=== PATIENT | female | born 1990 | race African-American/Black ===

== ENCOUNTER 2016-10-04 22:57 | Emergency (ER) | payer OTHER ==
[~2016-10-04] VITALS: Ht 162.6 cm; Wt 95.3 kg
[~2016-10-04 22:57] MED LIST: AZIT250T6 PO; CEPH-264 PO; HYDR-2165 PO; IBUP-1007 PO; PRED50TA PO; PROVENTIL HFA6.7 GM IH; SULF1TAB24 PO
[2016-10-04 23:31] LABS: BASO # 0.1 x10^3/uL (0.0-0.2); BASO % 1 % (0-3); EOS % 0 % (0-3); HEMOGLOBIN 12.2 g/dL (12.0-15.5); LYMPH # 3.8 x10^3/uL (1.0-4.8); LYMPH % 29 % (24-48); MEAN CORPUSCULAR HEMOGLOBIN 28 pg (25-35); MEAN CORPUSCULAR HGB CONC 32 g/dL (31-37); MEAN CORPUSCULAR VOLUME 87 fL (79-100); MONO % 6 % (0-9); NEUT % 64 % (31-73); PLATELET COUNT 382 x10^3/uL (140-400); RED BLOOD COUNT 4.38 x10^6/uL (3.50-5.40); RED CELL DISTRIBUTION WIDTH 13.3 % (11.5-14.5); WHITE BLOOD COUNT 13.2 x10^3/uL (4.0-11.0)
[2016-10-04 23:47] LABS: CALCIUM 9.6 mg/dL (8.5-10.1); GFR 82.4; POTASSIUM 3.7 mmol/L (3.5-5.1)
[2016-10-04 23:52] LABS: DIRECT BILIRUBIN 0.1 mg/dL (0.0-0.2); TOTAL BILIRUBIN 0.3 mg/dL (0.2-1.0); TOTAL PROTEIN 7.9 g/dL (6.4-8.2)
[2016-10-05] MEDS ORDERED: CONTRAST GIVEN MC PRN (00:45)
[2016-10-05] MEDS ORDERED: IOHEXOL 300 MG/ML 75 ML VIAL IV ONE (01:00)
[2016-10-05] MEDS ORDERED: KETOROLAC 15 MG/ML VIAL. IV ONE (01:00)
--- NOTE | 2016-10-05 01:13 | RAD ---
INDICATION: Chest pain. COMPARISON: None TECHNIQUE: Axial CT images obtained through the chest. Intravenous contrast was utilized. 3D images processed per protocol. One or more of the following individualized dose reduction techniques were utilized for this examination: 1. Automated exposure control; 2. Adjustment of the mA and/or kV according to patient size; 3. Use of iterative reconstruction technique. FINDINGS: No focal airspace consolidation. No pneumothorax. No pulmonary edema. Thoracic aorta not grossly aneurysmal. Ascending thoracic aorta evaluation is very limited secondary to motion. No gross osseous destructive lesion. No central pulmonary embolus. Limited peripherally secondary to motion. Suspect a right nonobstructive renal stone, 5 millimeter IMPRESSION: No focal airspace consolidation, pneumothorax or pulmonary edema. No central pulmonary embolus. Limited peripherally secondary to motion Mild fullness in distal esophagus. This is a questionable finding but cannot exclude causes such as reflux or esophagitis. Electronically signed by: [place] (Oct 05, 2016 01:11:50)
--- NOTE | 2016-10-05 01:35 | PHYS DOC ---
Past Medical History Past Medical History: Asthma Past Surgical History: Alcohol Use: None Drug Use: None Adult General Chief Complaint Chief Complaint: MULTIPLE COMPLAINTS HPI HPI Patient is a 26 year old female who presents here today complaining of chest pain since 9:30 PM. Patient has a history of asthma. Patient has any history of coronary disease, hypertension diabetes CHF liver or kidney problems. Patient has not had any abdominal surgeries. Patient is not smoke drink or do drugs. Patient denies any allergies except for penicillin. Patient denies fevers shakes chills. Patient denies vomiting or diarrhea. Patient denies diaphoresis. Patient denies cough or abdominal pain. Patient's last menstrual period was September 18. Patient reports she did have some mild shortness of breath earlier today. She denies any calf tenderness. Patient has any family history of PE or DVT. Patient reports she is on oral contraceptive pills. Patient's physical exam was unremarkable in the ER. Patient's heart lung abdominal exams were all normal. Patient tenderness or Homans sign. Patient appears comfortable resting in bed comfortably. Patient's ER course was significant for normal labs. Except for a d-dimer that was mildly elevated. Patient had a CTA of her chest which revealed no dissection or PE or abnormality. She was given Toradol with some relief in her discomfort. Patient be sent home with instructions to follow-up with her primary care physician for reevaluation and to return to the ER she has any further problems. A/P #1 nonspecific chest pain etiology unclear question gastritis versus pleurisy. Patient is stable for outpatient evaluation of this pain with her primary care physician. Review of Systems Review of Systems Constitutional: Denies fever or chills [] Eyes: Denies change in visual acuity, redness, or eye pain [] All other review systems are negative except as documented in history of present illness portion. Current Medications Current Medications Current Medications Medications (Trade) Dose Ordered Sig/Samara Start Time Stop Time Status Last Admin Dose Admin Info (Do NOT chart on this entry -- for MONITORING) 1 each PRN DAILY PRN 10/05/16 00:45 10/07/16 00:44 Iohexol (Omnipaque 300 Mg/ml) 75 ml 1X ONCE 10/05/16 01:00 10/05/16 01:01 DC 10/05/16 00:46 75 ML Ketorolac Tromethamine (Toradol) 15 mg 1X ONCE 10/05/16 01:00 10/05/16 01:01 DC 10/05/16 00:53 15 MG Allergies Allergies Allergies Coded Allergies Type Severity Reaction Last Updated Verified Penicillins Allergy Intermediate 09/09/15 Yes Physical Exam Physical Exam Constitutional: Well developed, well nourished, no acute distress, non-toxic appearance. [] HENT: Normocephalic, atraumatic, bilateral external ears normal, oropharynx moist, no oral exudates, nose normal. [] Eyes: PERRLA, EOMI, conjunctiva normal, no discharge. [] Neck: Normal range of motion, no tenderness, supple, no stridor. [] Cardiovascular:Heart rate regular rhythm, no murmur [] Lungs & Thorax: Bilateral breath sounds clear to auscultation [] Abdomen: Bowel sounds normal, soft, no tenderness, no masses, no pulsatile masses. [] Skin: Warm, dry, no erythema, no rash. [] Back: No tenderness, no CVA tenderness. [] Extremities: No tenderness, no cyanosis, no clubbing, ROM intact, no edema. [] Neurologic: Alert and oriented X 3, normal motor function, normal sensory function, no focal deficits noted. [] Psychologic: Affect normal, judgement normal, mood normal. [] Current Patient Data Vital Signs Vital Signs Date Time Temp Pulse Resp B/P Pulse Ox O2 Delivery O2 Flow Rate FiO2 10/04/16 23:03 98.0 87 20 134/90 100 Room Air 98.0 Lab Values Laboratory Tests Test 10/04/16 22:46 10/04/16 23:20 POC Urine HCG, Qualitative Hcg negative (Negative) White Blood Count 13.2x10^3/uL (4.0-11.0) H Red Blood Count 4.38x10^6/uL (3.50-5.40) Hemoglobin 12.2g/dL (12.0-15.5) Hematocrit 38.0% (36.0-47.0) Mean Corpuscular Volume 87fL (79-100) Mean Corpuscular Hemoglobin 28pg (25-35) Mean Corpuscular Hemoglobin Concent 32g/dL (31-37) Red Cell Distribution Width 13.3% (11.5-14.5) Platelet Count 382x10^3/uL (140-400) Neutrophils (%) (Auto) 64% (31-73) Lymphocytes (%) (Auto) 29% (24-48) Monocytes (%) (Auto) 6% (0-9) Eosinophils (%) (Auto) 0% (0-3) Basophils (%) (Auto) 1% (0-3) Neutrophils # (Auto) 8.4x10^3uL (1.8-7.7) H Lymphocytes # (Auto) 3.8x10^3/uL (1.0-4.8) Monocytes # (Auto) 0.8x10^3/uL (0.0-1.1) Eosinophils # (Auto) 0.0x10^3/uL (0.0-0.7) Basophils # (Auto) 0.1x10^3/uL (0.0-0.2) D-Dimer (Edith) 0.67ug/mlFEU (0.00-0.50) H Sodium Level 140mmol/L (136-145) Potassium Level 3.7mmol/L (3.5-5.1) Chloride Level 104mmol/L (98-107) Carbon Dioxide Level 22mmol/L (21-32) Anion Gap 14 (6-14) Blood Urea Nitrogen 14mg/dL (7-20) Creatinine 1.0mg/dL (0.6-1.0) Estimated GFR (Cockcroft-Gault) 82.4 Glucose Level 114mg/dL (70-99) H Calcium Level 9.6mg/dL (8.5-10.1) Total Bilirubin 0.3mg/dL (0.2-1.0) Direct Bilirubin 0.1mg/dL (0.0-0.2) Aspartate Amino Transferase (AST) 24U/L (15-37) Alanine Aminotransferase (ALT) 34U/L (14-59) Alkaline Phosphatase 76U/L (46-116) Troponin I Quantitative < 0.017ng/mL (0.000-0.055) AZ-Adq-U-Type Natriuretic Peptide 27pg/mL (0-124) Total Protein 7.9g/dL (6.4-8.2) Albumin 4.0g/dL (3.4-5.0) Laboratory Tests 10/04/16 23:20 Laboratory Tests 10/04/16 23:20 EKG EKG [] Radiology/Procedures Radiology/Procedures [] Course & Med Decision Making Course & Med Decision Making Pertinent Labs and Imaging studies reviewed. (See chart for details) [] Laboratory Tests Test 10/04/16 22:46 10/04/16 23:20 Bedside Urine HCG, Qualitative Hcg negative White Blood Count 13.2x10^3/uL Red Blood Count 4.38x10^6/uL Hemoglobin 12.2g/dL Hematocrit 38.0% Mean Corpuscular Volume 87fL Mean Corpuscular Hemoglobin 28pg Mean Corpuscular Hemoglobin Concent 32g/dL Red Cell Distribution Width 13.3% Platelet Count 382x10^3/uL Neutrophils (%) (Auto) 64% Lymphocytes (%) (Auto) 29% Monocytes (%) (Auto) 6% Eosinophils (%) (Auto) 0% Basophils (%) (Auto) 1% Neutrophils # (Auto) 8.4x10^3uL Lymphocytes # (Auto) 3.8x10^3/uL Monocytes # (Auto) 0.8x10^3/uL Eosinophils # (Auto) 0.0x10^3/uL Basophils # (Auto) 0.1x10^3/uL D-Dimer (Edith) 0.67ug/mlFEU Sodium Level 140mmol/L Potassium Level 3.7mmol/L Chloride Level 104mmol/L Carbon Dioxide Level 22mmol/L Anion Gap 14 Blood Urea Nitrogen 14mg/dL Creatinine 1.0mg/dL Estimated GFR (Cockcroft-Gault) 82.4 Glucose Level 114mg/dL Calcium Level 9.6mg/dL Total Bilirubin 0.3mg/dL Direct Bilirubin 0.1mg/dL Aspartate Amino Transf (AST/SGOT) 24U/L Alanine Aminotransferase (ALT/SGPT) 34U/L Alkaline Phosphatase 76U/L Troponin I Quantitative < 0.017ng/mL JP-Kpv-M-Type Natriuretic Peptide 27pg/mL Total Protein 7.9g/dL Albumin 4.0g/dL Current Medications Medications (Trade) Dose Ordered Sig/Samara Route PRN Reason Start Time Stop Time Status Last Admin Dose Admin Ketorolac Tromethamine (Toradol) 15 mg 1X ONCE IV 10/05/16 01:00 10/05/16 01:01 DC 10/05/16 00:53 15 MG Iohexol (Omnipaque 300 Mg/ml) 75 ml 1X ONCE IV 10/05/16 01:00 10/05/16 01:01 DC 10/05/16 00:46 75 ML Info (Do NOT chart on this entry -- for MONITORING) 1 each PRN DAILY PRN MC SEE COMMENTS 10/05/16 00:45 10/07/16 00:44 Lois Disclaimer Dragon Disclaimer This electronic medical record was generated, in whole or in part, using a voice recognition dictation system. Departure Departure Impression: Primary Impression: Nonspecific chest pain Disposition: HOME, SELF-CARE Condition: IMPROVED Referrals: CEE BOYER MD (PCP) Patient Instructions: Chest Pain (Nonspecific) BJORN KEEANN MD Oct 05, 2016 01:35
[2016-10-05 01:50] VITALS: BP 113/70
--- NOTE | 2016-10-05 06:53 | EKG ---
[facility] [address] [place] [address] Test Date: 2016-10-04 Test Time: 23:58:11 Pat Name: AVANI BLACK Department: Room: Gender: F Outside Laborer: : 1990 Requested By: BJORN KEENAN Order Number: [id number] Reading MD: Measurements Intervals [place] Rate: 75 P: 64 CT: 136 QRS: 73 QRSD: 78 T: 28 QT: 360 QTc: 404 Interpretive Statements SINUS RHYTHM LEFT ATRIAL ABNORMALITY NON SPECIFIC ST-T ABNORMALITY (ELEVATION) RI6.01 Unconfirmed report No previous ECG available for comparison
--- NOTE | 2016-10-05 07:37 | RAD ---
Portable chest, 10/04/2016: History: Chest pain The heart size and pulmonary vascularity are normal. No pulmonary infiltrates are seen. There is no evidence of pleural fluid. IMPRESSION: No acute cardiopulmonary abnormality is detected.
== END 2016-10-05 02:03 | disposition home or self-care (01) ==
LOC: ER 22:57
DX: R07.9 Chest pain, unspecified (principal); R06.02 Shortness of breath; J45.909 Unspecified asthma, uncomplicated; Z88.0 Allergy status to penicillin
CPT/HCPCS: 36415; 71010; 71275; 80048; 80076; 81025; 83880; 84484; 85027; 85379; 93005; 96374; 99285; J1885; Q9967

== ENCOUNTER 2016-12-01 22:02 | Emergency (ER) | payer OTHER ==
[~2016-12-01] VITALS: Ht 162.6 cm; Wt 96.6 kg
[2016-12-01 22:55] LABS: BILIRUBIN,URINE NEGATIVE (NEG); GLUCOSE,URINE NEGATIVE (NEG); NITRITE,URINE NEGATIVE (NEG); PROTEIN,URINE NEGATIVE (NEG-TRACE)
--- NOTE | 2016-12-01 23:00 | PHYS DOC ---
Past Medical History Past Medical History: Asthma, UTI, Other Additional Past Medical Histor: seasonal allergies Past Surgical History: Alcohol Use: None Drug Use: None Adult General Chief Complaint Chief Complaint: ABDOMINAL PAIN IN HPI HPI Patient is a 26 year old F who presents with abdominal pain and vaginal bleeding. Patient states last week she took a printed test which was positive and base of her last menstrual. She is approximately 8 weeks . Patient is . She states she was at work tonight and developed some abdominal cramping and went to the bathroom and had blood when she wiped. Patient called her mom who told her to the emergency room immediately. Patient denies any chest pain or short of breath. Patient denies any nausea/vomiting/diarrhea. Patient denies any fevers. Patient has no other complaints. Current exam findings: Abdomen was soft nontender bowel sounds heard in all 4 quadrants. Vaginal exam shows no bleeding in the vaginal vault no adnexal tenderness and the external exam was unremarkable and no discharge ED course: Patient was seen and examined, CBC, CMP, UA, urine Preg, beta Quant, Rh, ultrasound less than 14 weeks ordered 0121: Updated patient on results from ultrasound and lab results that are showing most likely a miscarriage. Recommended patient follow-up with her OB/ NEUROPSYCHIATRIC AIDE on Saturday for further evaluation and management. Recommended pelvic rest until follow-up with SENIOR CYTOGENETICS LABORATORY DIRECTOR. Pertinent results: Beta Quant 4571 OB ultrasound less than 14 weeks IMPRESSION: 1. Intrauterine identified without pole. The gestational sac is somewhat abnormally shaped. This is probably failed first trimester , however very early is not completely excluded given the dates. Close interval follow-up examination and serial quantitative beta-hCG levels is recommended. 2. 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 The intrauterine gestational sac is identified in the left portion of the endometrium. 3. Mildly prominent appearing right fallopian tube. 4. Moderate amount of fluid identified in the cul-de-sac. MDM: After reviewing the chart, CC/HPI/PMH, physical exam, [lab results], [ radiological results], I do not believe the patient is having an acute atopic warranting further workup and/or admission at this time. I believe the patient is having a miscarriage and recommended patient follow-up with her SENIOR CYTOGENETICS LABORATORY DIRECTOR for further management. Gave patient strict return precautions. Patient is stable for discharge. Additional verbal discharge instructions were provided to the patient and that if symptoms get worse or any new symptoms arise that are worrisome to the patient she is to return to the emergency room immediately Review of Systems Review of Systems GEN: Denies fevers, chills, sweats HEENT: Denies blurred vision, sore throat CV: Denies chest pain RESP: Denies shortness of air, cough GI: Denies n/v/d, positive vaginal bleeding NEURO: Denies confusion, dizziness MSK: Denies weakness, joint pain/swelling Allergies Allergies Allergies Coded Allergies Type Severity Reaction Last Updated Verified Penicillins Allergy Intermediate 09/09/15 Yes Physical Exam Physical Exam GEN.: No apparent distress. Alert and oriented. HEENT: Head is normocephalic, atraumatic NECK: Supple. LUNGS: CTAB. HEART: RRR, S1, S2 present. Peripheral pulses intact ABDOMEN: Soft, nontender. Positive bowel sounds. : Vaginal exam shows no bleeding in the vaginal vault no adnexal tenderness and the external exam was unremarkable and no discharge EXTREMITIES: Without any cyanosis. NEUROLOGIC: Normal speech, normal tone PSYCHIATRIC: Normal affect, normal mood. SKIN: No ulcerations Current Patient Data Vital Signs Vital Signs Date Time Temp Pulse Resp B/P (MAP) Pulse Ox O2 Delivery O2 Flow Rate FiO2 12/01/16 22:20 100.7 99 20 135/60 (85) 97 Room Air 100.7 Lab Values Laboratory Tests Test 12/01/16 21:26 12/01/16 22:18 12/01/16 23:17 POC Urine HCG, Qualitative Hcg positive (Negative) Urine Collection Type Unknown Urine Color Yellow Urine Clarity Cloudy Urine pH 6.0 Urine Specific [place] >=1.030 Urine Protein Negative mg/dL (NEG-TRACE) Urine Glucose (UA) Negative mg/dL (NEG) Urine Ketones (Stick) Negative mg/dL (NEG) Urine Blood Small (NEG) Urine Nitrite Negative (NEG) Urine Bilirubin Negative (NEG) Urine Urobilinogen Dipstick 1.0 mg/dL (0.2 mg/dL) Urine Leukocyte Esterase Negative (NEG) Urine RBC 1-2 /HPF (0-2) Urine WBC 1-4 /HPF (0-4) Urine Squamous Epithelial Cells Many /LPF Urine Bacteria Moderate /HPF (0-FEW) Urine Mucus Marked /LPF White Blood Count 10.1 x10^3/uL (4.0-11.0) Red Blood Count 4.33 x10^6/uL (3.50-5.40) Hemoglobin 12.3 g/dL (12.0-15.5) Hematocrit 36.7 % (36.0-47.0) Mean Corpuscular Volume 85 fL (79-100) Mean Corpuscular Hemoglobin 29 pg (25-35) Mean Corpuscular Hemoglobin Concent 34 g/dL (31-37) Red Cell Distribution Width 13.6 % (11.5-14.5) Platelet Count 394 x10^3/uL (140-400) Neutrophils (%) (Auto) 56 % (31-73) Lymphocytes (%) (Auto) 36 % (24-48) Monocytes (%) (Auto) 7 % (0-9) Eosinophils (%) (Auto) 1 % (0-3) Basophils (%) (Auto) 1 % (0-3) Neutrophils # (Auto) 5.6 x10^3uL (1.8-7.7) Lymphocytes # (Auto) 3.7 x10^3/uL (1.0-4.8) Monocytes # (Auto) 0.7 x10^3/uL (0.0-1.1) Eosinophils # (Auto) 0.1 x10^3/uL (0.0-0.7) Basophils # (Auto) 0.0 x10^3/uL (0.0-0.2) Maternal Serum HCG Beta Subunit 4571 mIU/mL (0-6) H Sodium Level 138 mmol/L (136-145) Potassium Level 3.3 mmol/L (3.5-5.1) L Chloride Level 104 mmol/L (98-107) Carbon Dioxide Level 25 mmol/L (21-32) Anion Gap 9 (6-14) Blood Urea Nitrogen 13 mg/dL (7-20) Creatinine 0.9 mg/dL (0.6-1.0) Estimated GFR (Cockcroft-Gault) 93.1 BUN/Creatinine Ratio 14 (6-20) Glucose Level 83 mg/dL (70-99) Calcium Level 8.7 mg/dL (8.5-10.1) Total Bilirubin 0.3 mg/dL (0.2-1.0) Aspartate Amino Transferase (AST) 17 U/L (15-37) Alanine Aminotransferase (ALT) 20 U/L (14-59) Alkaline Phosphatase 82 U/L (46-116) Total Protein 7.8 g/dL (6.4-8.2) Albumin 3.7 g/dL (3.4-5.0) Albumin/Globulin Ratio 0.9 (1.0-1.7) L Laboratory Tests 12/01/16 23:17 Laboratory Tests 12/01/16 23:17 EKG EKG [] Radiology/Procedures Radiology/Procedures OB ultrasound less than 14 weeks: IMPRESSION: 1. Intrauterine identified without pole. The gestational sac is somewhat abnormally shaped. This is probably failed first trimester , however very early is not completely excluded given the dates. Close interval follow-up examination and serial quantitative beta-hCG levels is recommended. 2. 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 The intrauterine gestational sac is identified in the left portion of the endometrium. 3. Mildly prominent appearing right fallopian tube. 4. Moderate amount of fluid identified in the cul-de-sac.[] Course & Med Decision Making Course & Med Decision Making Pertinent Labs and Imaging studies reviewed. (See chart for details) [] Dragon Disclaimer Dragon Disclaimer This electronic medical record was generated, in whole or in part, using a voice recognition dictation system. Departure Departure Impression: Primary Impression: Threatened miscarriage in early Disposition: 01 HOME, SELF-CARE Condition: IMPROVED Referrals: CEE BOYER MD (PCP) Patient Instructions: Threatened Miscarriage, [id number] Additional Instructions: Please follow up with her SENIOR CYTOGENETICS LABORATORY DIRECTOR in the next one to 2 days VIOLETTA ALCARAZ DO Dec 01, 2016 23:00
[2016-12-01 23:01] LABS: BACTERIA,URINE MODERATE /HPF (0-FEW); SQUAMOUS EPITHELIAL CELL,UR MANY /LPF
[2016-12-01 23:30] VITALS: BP 119/68
[2016-12-01 23:33] LABS: BASO % 1 % (0-3); EOS % 1 % (0-3); HEMATOCRIT 36.7 % (36.0-47.0); HEMOGLOBIN 12.3 g/dL (12.0-15.5); LYMPH # 3.7 x10^3/uL (1.0-4.8); LYMPH % 36 % (24-48); MEAN CORPUSCULAR HEMOGLOBIN 29 pg (25-35); MEAN CORPUSCULAR HGB CONC 34 g/dL (31-37); MEAN CORPUSCULAR VOLUME 85 fL (79-100); MONO % 7 % (0-9); NEUT % 56 % (31-73); PLATELET COUNT 394 x10^3/uL (140-400); RED BLOOD COUNT 4.33 x10^6/uL (3.50-5.40); RED CELL DISTRIBUTION WIDTH 13.6 % (11.5-14.5); WHITE BLOOD COUNT 10.1 x10^3/uL (4.0-11.0)
[2016-12-01 23:47] LABS: CALCIUM 8.7 mg/dL (8.5-10.1); CREATININE 0.9 mg/dL (0.6-1.0); GFR 93.1; POTASSIUM 3.3 mmol/L (3.5-5.1)
[2016-12-01 23:52] LABS: ALBUMIN 3.7 g/dL (3.4-5.0); ALBUMIN/GLOBULIN RATIO 0.9 (1.0-1.7); TOTAL BILIRUBIN 0.3 mg/dL (0.2-1.0); TOTAL PROTEIN 7.8 g/dL (6.4-8.2)
--- NOTE | 2016-12-02 00:32 | RAD ---
Examination: Ultrasound first trimester HISTORY: History of bleeding, cramping COMPARISON: None FINDINGS: The uterus measures 8.9 x5.6 x 4.6 cm. The endometrium appears split could be arcuate uterus or bicornuate uterus.. In the left portion of the endometrium there is an intrauterine gestational sac identified measuring 1.1 cm corresponding to 5 weeks and 6 days +/- 12 days. A pole is not identified. LMP 10/06/2016 Clinical age 8 weeks and 0 days. Estimated date of delivery 07/13/2017 Ultrasound age is 5 weeks and 6 days with date of delivery 07/28/2017. The right ovary measures 3.1 x 2.1 x 2.2 cm. There is a subcentimeter cystic structure in the inferior portion of the right ovary could be a cyst or a corpus luteal cyst. The left ovary measures 2.6 x 2.5 x 2.7 cm. The right fallopian tube is mildly prominent. Moderate amount of free fluid identified in the cul-de-sac. IMPRESSION: 1. Intrauterine identified without pole. The gestational sac is somewhat abnormally shaped. This is probably failed first trimester , however very early is not completely excluded given the dates. Close interval follow-up examination and serial quantitative beta-hCG levels is recommended. 2. 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 The intrauterine gestational sac is identified in the left portion of the endometrium. 3. Mildly prominent appearing right fallopian tube. 4. Moderate amount of fluid identified in the cul-de-sac. Electronically signed by: Davian Flores MD (12/02/2016 12:29 AM)
== END 2016-12-02 02:11 | disposition home or self-care (01) ==
LOC: ER 22:02
DX: O20.0 Threatened abortion (principal); Z3A.01 Less than 8 weeks gestation of pregnancy; O99.511 Diseases of the respiratory system complicating pregnancy, first trimester; J45.909 Unspecified asthma, uncomplicated; Z87.440 Personal history of urinary (tract) infections; Z88.0 Allergy status to penicillin
CPT/HCPCS: 36415; 76801; 76817; 80053; 81001; 81025; 84702; 85027; 86900; 86901; 87086; 87491; 87591; 99285; Q0111

== ENCOUNTER → 2016-12-03 | Outpatient (CLI) | payer OTHER ==
[2016-12-01 23:30] VITALS: BP 119/68
[2016-12-03 16:47] LABS: BASO # 0.1 x10^3/uL (0.0-0.2); BASO % 1 % (0-3); EOS % 1 % (0-3); HEMATOCRIT 38.5 % (36.0-47.0); HEMOGLOBIN 12.3 g/dL (12.0-15.5); LYMPH # 3.5 x10^3/uL (1.0-4.8); LYMPH % 30 % (24-48); MEAN CORPUSCULAR HEMOGLOBIN 28 pg (25-35); MEAN CORPUSCULAR HGB CONC 32 g/dL (31-37); MEAN CORPUSCULAR VOLUME 88 fL (79-100); MONO % 9 % (0-9); NEUT % 60 % (31-73); PLATELET COUNT 362 x10^3/uL (140-400); RED BLOOD COUNT 4.39 x10^6/uL (3.50-5.40); RED CELL DISTRIBUTION WIDTH 13.6 % (11.5-14.5)
== END | disposition home or self-care (01) ==
LOC: LAB 16:17
PROVIDERS: ATTEND Obstetrics & Gynecology
DX: O20.0 Threatened abortion (principal)
CPT/HCPCS: 36415; 84702; 85027

== ENCOUNTER 2016-12-05 12:27 | Emergency (ER) | payer OTHER ==
[~2016-12-05] VITALS: Ht 162.6 cm; Wt 96.6 kg
--- NOTE | 2016-12-05 13:28 | PHYS DOC ---
Past Medical History Past Medical History: Asthma, UTI, Other Additional Past Medical Histor: seasonal allergies Past Surgical History: Alcohol Use: None Drug Use: None Adult General Chief Complaint Chief Complaint: ABDOMINAL PAIN HPI HPI Patient is a 26 year old female presents emergency department stating that she has had abdominal pain that started last night. She state she is with LNMP 10/06/16 patient was seen here on 12/01 with ultrasound completed with an empty yok sack noted. Patient states she had followup he [facility] in which they had repeated the beta quant HCG which was elevated from the ED on 12/01. Patient states she has been drinking plenty of fluids, she denies nausea or vomiting. She denies vaginal discharge. Review of Systems Review of Systems Constitutional: Denies fever or chills [] Eyes: Denies change in visual acuity, redness, or eye pain [] HENT: Denies nasal congestion or sore throat [] Respiratory: Denies cough or shortness of breath [] Cardiovascular: No additional information not addressed in HPI [] GI: lower abdominal pain, denies nausea, vomiting, bloody stools or diarrhea [] : Denies dysuria or hematuria [] Musculoskeletal: Denies back pain or joint pain [] Integument: Denies rash or skin lesions [] Neurologic: Denies headache, focal weakness or sensory changes [] Endocrine: Denies polyuria or polydipsia [] Current Medications Current Medications Current Medications Medications (Trade) Dose Ordered Sig/Samara Start Time Stop Time Status Last Admin Dose Admin Acetaminophen (Tylenol) 650 mg 1X ONCE 12/05/16 13:30 12/05/16 13:31 DC 12/05/16 13:41 650 MG Sodium Chloride 1,000 ml @ 1,000 mls/hr 1X ONCE 12/05/16 13:30 12/05/16 14:29 DC 12/05/16 13:42 1,000 MLS/HR Allergies Allergies Allergies Coded Allergies Type Severity Reaction Last Updated Verified Penicillins Allergy Intermediate 09/09/15 Yes Physical Exam Physical Exam Constitutional: Well developed, well nourished, no acute distress, non-toxic appearance. [] HENT: Normocephalic, atraumatic, bilateral external ears normal, oropharynx moist, no oral exudates, nose normal. [] Eyes: PERRLA, EOMI, conjunctiva normal, no discharge. [] Neck: Normal range of motion, no tenderness, supple, no stridor. [] Cardiovascular:Heart rate regular rhythm, no murmur [] Lungs & Thorax: Bilateral breath sounds clear to auscultation [] Abdomen: Bowel sounds hypoactive, soft, generalized lower abdominal tenderness, no masses, no pulsatile masses. [] Skin: Warm, dry, no erythema, no rash. [] Back: lower back tenderness Extremities: No tenderness, no cyanosis, no clubbing, ROM intact, no edema. [] Neurologic: Alert and oriented X 3, normal motor function, normal sensory function, no focal deficits noted. [] Psychologic: Affect normal, judgement normal, mood normal. [] Current Patient Data Vital Signs Vital Signs Date Time Temp Pulse Resp B/P (MAP) Pulse Ox O2 Delivery O2 Flow Rate FiO2 12/05/16 12:39 98.9 80 16 143/79 (100) 98 Room Air 98.9 Lab Values Laboratory Tests Test 12/05/16 13:35 12/05/16 15:58 Maternal Serum HCG Beta Subunit 99129 mIU/mL (0-6) H Urine Collection Type Unknown Urine Color Yellow Urine Clarity Clear Urine pH 6.0 Urine Specific [place] 1.020 Urine Protein Negative mg/dL (NEG-TRACE) Urine Glucose (UA) Negative mg/dL (NEG) Urine Ketones (Stick) Trace mg/dL (NEG) Urine Blood Negative (NEG) Urine Nitrite Negative (NEG) Urine Bilirubin Negative (NEG) Urine Urobilinogen Dipstick 0.2 mg/dL (0.2 mg/dL) Urine Leukocyte Esterase Negative (NEG) Urine RBC 0 /HPF (0-2) Urine WBC 0 /HPF (0-4) Urine Squamous Epithelial Cells Mod /LPF Urine Bacteria 0 /HPF (0-FEW) Urine Mucus Mod /LPF EKG EKG [] Radiology/Procedures Radiology/Procedures [][facility] [address] [place] [address] IMAGING REPORT Signed PATIENT: AVANI BLACK ACCOUNT: [id number] : 1990 LOCATION: ER AGE: 26 SEX: F EXAM STATUS: REG ER ORD. PHYSICIAN: LIBBY KAUFFMAN APRN REASON: abdominal pain and discomfort with back pain PROCEDURE: OB <14 WKS W/TV OB ultrasound less than 14 weeks to include transabdominal and transvaginal imaging 12/05/2016 Clinical history: First trimester with pelvic pain. Technique: Using the distended urinary bladder as a sonographic window, a real-time ultrasound examination of the pelvis was performed. Additionally in an attempt to better evaluate the uterus and adnexa, a transvaginal pelvic ultrasound study was performed. Multiple images were obtained. Findings: Comparison study is dated 12/01/2016. A gestational sac is again seen within the uterus. An embryonic pole and associated yolk sac are seen within the uterus. The CRL of the embryonic pole measures 2 mm. This corresponds to an estimated gestational age by ultrasound of 5 weeks 5 days plus or minus a standard deviation of 4 days. Embryonic cardiac activity is seen within the heart rate is 65 beats per minutes. The uterus is otherwise within normal limits. The right ovary is normal in size and echogenicity. It measures 2.8 x 2.1 x 1.5 cm in size. The left ovary is not visualized. No adnexal mass is seen. Impression: Single living IUP with an estimated gestational age by ultrasound of 5 weeks 5 days +/- the standard deviation of 4 days. DICTATED and SIGNED BY: SONDRA BIRD MD DATE: 12/05/16 1510 CC: LIBBY KAUFFMAN APRN; CEE BOYER MD; NON,STAFF ~ Course & Med Decision Making Course & Med Decision Making Pertinent Labs and Imaging studies reviewed. (See chart for details) Ultrasound shows a 5 week 5 day old fetus with a heart rate of 64. Patient continues to have abdominal pain and discomfort she was provided with Tylenol and 1 L of IV fluids. Urine was negative for any tract infection. Patient continues to deny any vaginal discharge. Patient was however noted to have ketones in her urine recommended plenty of fluids. Recommended following up with her [facility] in the next 2-3 days. Signs and symptoms to return back to emergency department as been provided. Patient agrees with discharge instructions, treatment regimen and followup recommendations. She was instructed for vaginal rest nothing to be inserted into the vaginal area. [] Dragon Disclaimer Dragon Disclaimer This electronic medical record was generated, in whole or in part, using a voice recognition dictation system. Departure Departure Impression: Primary Impression: Threatened miscarriage Disposition: 01 HOME, SELF-CARE Condition: STABLE Referrals: CEE BOYER MD (PCP) GIANNI HIGHTOWER Jr, MD Patient Instructions: Threatened Miscarriage, [id number] Additional Instructions: Home to rest Medications as prescribed such as Tylenol for pain and discomfort. Vaginal rest. This means nothing to be inserted into the vaginal area. Follow-up with your [facility] in 2 days. Return to the emergency department sign symptoms of become worse. LIBBY KAUFFMAN SR. [employer] Dec 05, 2016 13:28
[2016-12-05] MEDS ORDERED: IV NORMAL SALINE 1000ML BAG 1,000 ML IV ONE (13:30)
[2016-12-05] MEDS ORDERED: ACETAMINOPHEN 325 MG TABLET. PO ONE (13:30)
--- NOTE | 2016-12-05 15:20 | RAD ---
OB ultrasound less than 14 weeks to include transabdominal and transvaginal imaging 12/05/2016 Clinical history: First trimester with pelvic pain. Technique: Using the distended urinary bladder as a sonographic window, a real-time ultrasound examination of the pelvis was performed. Additionally in an attempt to better evaluate the uterus and adnexa, a transvaginal pelvic ultrasound study was performed. Multiple images were obtained. Findings: Comparison study is dated 12/01/2016. A gestational sac is again seen within the uterus. An embryonic pole and associated yolk sac are seen within the uterus. The CRL of the embryonic pole measures 2 mm. This corresponds to an estimated gestational age by ultrasound of 5 weeks 5 days plus or minus a standard deviation of 4 days. Embryonic cardiac activity is seen within the heart rate is 65 beats per minutes. The uterus is otherwise within normal limits. The right ovary is normal in size and echogenicity. It measures 2.8 x 2.1 x 1.5 cm in size. The left ovary is not visualized. No adnexal mass is seen. Impression: Single living IUP with an estimated gestational age by ultrasound of 5 weeks 5 days +/- the standard deviation of 4 days.
[2016-12-05 16:32] LABS: BILIRUBIN,URINE NEGATIVE (NEG); GLUCOSE,URINE NEGATIVE (NEG); NITRITE,URINE NEGATIVE (NEG); PROTEIN,URINE NEGATIVE (NEG-TRACE); UROBILINOGEN,URINE 0.2 mg/dL (0.2 mg/dL)
[2016-12-05 16:42] LABS: BACTERIA,URINE 0 /HPF (0-FEW); RBC,URINE 0 /HPF (0-2); SQUAMOUS EPITHELIAL CELL,UR MOD /LPF; WBC,URINE 0 /HPF (0-4)
[2016-12-05 17:20] VITALS: BP 120/54
== END 2016-12-05 17:25 | disposition home or self-care (01) ==
LOC: ER 12:27
DX: O20.0 Threatened abortion (principal); J45.909 Unspecified asthma, uncomplicated; Z88.0 Allergy status to penicillin; Z3A.01 Less than 8 weeks gestation of pregnancy; Z87.440 Personal history of urinary (tract) infections
CPT/HCPCS: 36415; 76801; 76817; 81001; 84702; 96360; 99285; J7030

== ENCOUNTER → 2016-12-10 | Outpatient (CLI) | payer OTHER ==
[2016-12-05 17:20] VITALS: BP 120/54
== END | disposition home or self-care (01) ==
LOC: LAB 14:30
PROVIDERS: ATTEND Obstetrics & Gynecology
DX: O09.90 Supervision of high risk pregnancy, unspecified, unspecified trimester (principal)
CPT/HCPCS: 36415; 84702

== ENCOUNTER 2017-02-17 13:22 | Emergency (ER) | payer OTHER ==
--- NOTE | 2017-02-17 14:19 | PHYS DOC ---
Past Medical History Past Medical History: Asthma, UTI, Other Additional Past Medical Histor: seasonal allergies Past Surgical History: Alcohol Use: None Drug Use: None Adult General Chief Complaint Chief Complaint: ABDOMINAL PAIN IN HPI HPI Patient is a 26 year old female who presents with approximately 19 weeks with some pelvic pain and cramping no vaginal bleeding or discharge, no fever. No nausea vomiting diarrhea or dysuria or frequency. No chest pain or shortness of breath. Last was a. October 04, 2016, EDC 07/28/16, 1. Review of Systems Review of Systems Constitutional: Denies fever or chills [] Eyes: Denies change in visual acuity, redness, or eye pain [] HENT: Denies nasal congestion or sore throat [] Respiratory: Denies cough or shortness of breath [] Cardiovascular: No additional information not addressed in HPI [] GI: Denies abdominal pain, nausea, vomiting, bloody stools or diarrhea [] : Denies dysuria or hematuria [] Musculoskeletal: Denies back pain or joint pain [] Integument: Denies rash or skin lesions [] Neurologic: Denies headache, focal weakness or sensory changes [] Endocrine: Denies polyuria or polydipsia [] Allergies Allergies Allergies Coded Allergies Type Severity Reaction Last Updated Verified Penicillins Allergy Intermediate 09/09/15 Yes Physical Exam Physical Exam Constitutional: Well developed, well nourished, no acute distress, non-toxic appearance. [] HENT: Normocephalic, atraumatic, bilateral external ears normal, oropharynx moist, no oral exudates, nose normal. [] Eyes: PERRLA, EOMI, conjunctiva normal, no discharge. [] Neck: Normal range of motion, no tenderness, supple, no stridor. [] Cardiovascular:Heart rate regular rhythm, no murmur [] Lungs & Thorax: Bilateral breath sounds clear to auscultation [] Abdomen: Bowel sounds normal, soft, no tenderness, no masses, no pulsatile masses. [Very questionable suprapubic tenderness to palpation. Fundus consistent with 17-19 weeks gestational age] Skin: Warm, dry, no erythema, no rash. [] Back: No tenderness, no CVA tenderness. [] Extremities: No tenderness, no cyanosis, no clubbing, ROM intact, no edema. [] Neurologic: Alert and oriented X 3, normal motor function, normal sensory function, no focal deficits noted. [] Psychologic: Affect normal, judgement normal, mood normal. [] Current Patient Data Vital Signs Vital Signs Date Time Temp Pulse Resp B/P (MAP) Pulse Ox O2 Delivery O2 Flow Rate FiO2 02/17/17 15:39 90 112/63 (79) 98 Room Air 02/17/17 14:16 98.5 18 98.5 Lab Values Laboratory Tests Test 02/17/17 13:49 Urine Collection Type Void Urine Color Yellow Urine Clarity Clear Urine pH 8.0 Urine Specific [place] 1.015 Urine Protein Negative mg/dL (NEG-TRACE) Urine Glucose (UA) Negative mg/dL (NEG) Urine Ketones (Stick) Negative mg/dL (NEG) Urine Blood Negative (NEG) Urine Nitrite Negative (NEG) Urine Bilirubin Negative (NEG) Urine Urobilinogen Dipstick 0.2 mg/dL (0.2 mg/dL) Urine Leukocyte Esterase Negative (NEG) Urine RBC 0 /HPF (0-2) Urine WBC Occ /HPF (0-4) Urine Squamous Epithelial Cells Many /LPF Urine Bacteria Moderate /HPF (0-FEW) Urine Mucus Slight /LPF EKG EKG [] Radiology/Procedures Radiology/Procedures [] Course & Med Decision Making Course & Med Decision Making Pertinent Labs and Imaging studies reviewed. (See chart for details) heart tones 160, benign abdominal exam, and we will check UA. More than likely round ligament pain and a benign process at play here Dragon Disclaimer Dragon Disclaimer This electronic medical record was generated, in whole or in part, using a voice recognition dictation system. Departure Departure Impression: Primary Impression: UTI (lower urinary tract infection) Additional Impression: Round ligament pain Disposition: 01 HOME, SELF-CARE Condition: STABLE Referrals: CEE BOYER MD (PCP) Patient Instructions: Round Ligament Pain, Urinary Tract Infection, Easy-to- Read Scripts Nitrofurantoin Monohyd/M-Cryst (MACROBID 100 MG CAPSULE) 100 Mg Capsule 1 CAP PO BID, #14 CAP Prov: UMA FREDERICK MD 02/17/17 Problem Qualifiers UMA FREDERICK MD Feb 17, 2017 14:19
[2017-02-17 14:25] LABS: BILIRUBIN,URINE NEGATIVE (NEG); GLUCOSE,URINE NEGATIVE (NEG); NITRITE,URINE NEGATIVE (NEG); PROTEIN,URINE NEGATIVE (NEG-TRACE); UROBILINOGEN,URINE 0.2 mg/dL (0.2 mg/dL)
[2017-02-17 14:38] LABS: RBC,URINE 0 /HPF (0-2)
[2017-02-17 14:39] LABS: BACTERIA,URINE MODERATE /HPF (0-FEW); SQUAMOUS EPITHELIAL CELL,UR MANY /LPF; WBC,URINE OCC /HPF (0-4)
[2017-02-17] MEDS ORDERED: NITR100C62 PO (15:17)
[2017-02-17 15:39] VITALS: BP 112/63
== END 2017-02-17 15:39 | disposition home or self-care (01) ==
LOC: ER 13:28
DX: O23.42 Unspecified infection of urinary tract in pregnancy, second trimester (principal); O99.512 Diseases of the respiratory system complicating pregnancy, second trimester; J45.909 Unspecified asthma, uncomplicated; Z88.0 Allergy status to penicillin; Z3A.19 19 weeks gestation of pregnancy
CPT/HCPCS: 81001; 87086; 99284

== ENCOUNTER → 2017-03-07 | Outpatient (CLI) | payer OTHER ==
[2017-02-17 15:39] VITALS: BP 112/63
[~2017-03-07] MED LIST changes: +NITR100C62 PO
--- NOTE | 2017-03-08 10:40 | RAD ---
Examination: 2 views of the left shoulder History: History of humerus fracture follow-up Comparison: 01/23/2017 Findings Comminuted displaced fracture of the proximal left humerus involving the humerus neck is again identified. There is mild increase in calcifications in the soft tissues about the fracture site could be callus formation or dystrophic calcification. Partially calcified lesion identified the humerus neck region probably an endochondroma again identified. Fracture line is again visible. Impression Mild increase in callus and dystrophic soft tissue calcification about the mildly displaced fracture of the left humerus neck.
== END | disposition home or self-care (01) ==
LOC: US 14:07
PROVIDERS: ATTEND Obstetrics & Gynecology
DX: O09.91 Supervision of high risk pregnancy, unspecified, first trimester (principal); O26.841 Uterine size-date discrepancy, first trimester; Z3A.14 14 weeks gestation of pregnancy
CPT/HCPCS: 76805

== ENCOUNTER 2017-04-06 23:07 | Observation (INO) | payer OTHER ==
[2017-04-06] MEDS ORDERED: IV RINGERS,LACTATED 1000ML 1,000 ML IV SCH (23:09)
[2017-04-06 23:40] LABS: BILIRUBIN,URINE NEGATIVE (NEG); GLUCOSE,URINE NEGATIVE (NEG); NITRITE,URINE NEGATIVE (NEG); PROTEIN,URINE NEGATIVE (NEG-TRACE)
[2017-04-06 23:47] LABS: BARBITURATES NEG (NEG); BENZODIAZEPINES NEG (NEG); CANNABINOIDS POS (NEG); COCAINE NEG (NEG); METHADONE NEG (NEG); OPIATES NEG (NEG); PHENCYCLIDINE NEG (NEG)
[2017-04-06 23:48] LABS: BACTERIA,URINE 0 /HPF (0-FEW); RBC,URINE 0 /HPF (0-2); SQUAMOUS EPITHELIAL CELL,UR MOD /LPF; WBC,URINE 0 /HPF (0-4)
[2017-06-21] MEDS ORDERED: PNV1TABL25 PO (08:54)
== END 2017-04-07 00:38 | disposition home or self-care (01) ==
LOC: 3 SO LND 23:07
PROVIDERS: ADMIT Obstetrics & Gynecology; ATTEND Obstetrics & Gynecology
DX: O26.892 Other specified pregnancy related conditions, second trimester (principal); R10.30 Lower abdominal pain, unspecified; R10.13 Epigastric pain; R12 Heartburn; O21.2 Late vomiting of pregnancy; Z3A.23 23 weeks gestation of pregnancy
CPT/HCPCS: 80307; 81001; G0378; G0379; G0479

== ENCOUNTER → 2017-04-24 | Outpatient (CLI) | payer OTHER ==
[2017-04-24 14:04] LABS: BASO % 0 % (0-3); EOS % 1 % (0-3); HEMOGLOBIN 11.6 g/dL (12.0-15.5); LYMPH # 1.8 x10^3/uL (1.0-4.8); LYMPH % 20 % (24-48); MEAN CORPUSCULAR HEMOGLOBIN 29 pg (25-35); MEAN CORPUSCULAR HGB CONC 33 g/dL (31-37); MEAN CORPUSCULAR VOLUME 88 fL (79-100); MONO % 7 % (0-9); NEUT % 72 % (31-73); PLATELET COUNT 294 x10^3/uL (140-400); RED CELL DISTRIBUTION WIDTH 13.5 % (11.5-14.5); WHITE BLOOD COUNT 9.3 x10^3/uL (4.0-11.0)
[2017-04-25 13:21] LABS: HIV ANTIBODY Non Reactive (Non Reactive)
== END | disposition home or self-care (01) ==
LOC: LAB 12:21
DX: Z34.83 Encounter for supervision of other normal pregnancy, third trimester (principal); Z3A.28 28 weeks gestation of pregnancy
CPT/HCPCS: 36415; 82950; 85025; 86701; 86702; 86703; 86900; 86901; 87491; 87535; 87591

== ENCOUNTER 2017-05-19 18:24 | Observation (INO) | payer OTHER ==
[2017-05-19] MEDS ORDERED: IV RINGERS,LACTATED 1000ML 1,000 ML IV SCH (19:00)
[2017-05-19 19:08] LABS: BILIRUBIN,URINE NEGATIVE (NEG); GLUCOSE,URINE NEGATIVE (NEG); NITRITE,URINE NEGATIVE (NEG); PROTEIN,URINE NEGATIVE (NEG-TRACE)
[2017-05-19 19:14] LABS: BARBITURATES NEG (NEG); BENZODIAZEPINES NEG (NEG); CANNABINOIDS POS (NEG); COCAINE NEG (NEG); METHADONE NEG (NEG); OPIATES NEG (NEG); PHENCYCLIDINE NEG (NEG)
[2017-05-19 19:44] LABS: BACTERIA,URINE MODERATE /HPF (0-FEW); RBC,URINE 0 /HPF (0-2); SQUAMOUS EPITHELIAL CELL,UR MANY /LPF; WBC,URINE 0 /HPF (0-4)
== END 2017-05-19 19:45 | disposition home or self-care (01) ==
LOC: 3 SO LND 18:24
DX: O36.8130 Decreased fetal movements, third trimester, not applicable or unspecified (principal); Z82.5 Family history of asthma and other chronic lower respiratory diseases; Z3A.29 29 weeks gestation of pregnancy
CPT/HCPCS: 80307; 81001; 87086; G0378; G0379; G0479

== ENCOUNTER → 2017-05-21 | Outpatient (CLI) | payer OTHER ==
--- NOTE | 2017-05-21 08:56 | RAD ---
Biophysical profile with nonstress test Indication: Vaginal mucus. Technique: Ultrasound biophysical profile with nonstress test with grayscale, color Doppler and spectral waveform images of the pelvis Comparison: Previous ultrasound from 03/07/2017 Findings: Single intrauterine is noted in cephalic position the time of scanning. The placenta is anterior and fundal in position. cardiac activity is demonstrated at the rate of 150 bpm. The amniotic fluid index measures 16.2 cm. The cervix measures 5.2 cm in length and is within normal limits. Biophysical score: breathing movements 2 out of 2 motion 2 out of 2. tone 2 out of 2 Amniotic fluid volume 2 out of 2 Impression: Total Biophysical profile score of 8 out of 8.
== END | disposition home or self-care (01) ==
LOC: US 08:26
DX: Z34.82 Encounter for supervision of other normal pregnancy, second trimester (principal); I87.2 Venous insufficiency (chronic) (peripheral); Z3A.19 19 weeks gestation of pregnancy
CPT/HCPCS: 76819

== ENCOUNTER → 2017-05-27 | Outpatient (CLI) | payer OTHER | END | disposition home or self-care (01) | LOC: SPEC 15:29 | DX: R44.9 Unspecified symptoms and signs involving general sensations and perceptions (principal) | CPT/HCPCS: 36415; 87102 ==

== ENCOUNTER 2017-06-03 09:28 | Observation (INO) | payer OTHER | END 2017-06-03 10:50 | disposition home or self-care (01) | LOC: 3 SO LND 09:28 | DX: O36.8130 Decreased fetal movements, third trimester, not applicable or unspecified (principal); Z3A.32 32 weeks gestation of pregnancy | CPT/HCPCS: G0378; G0379; 59025 ==

== ENCOUNTER 2017-06-10 09:07 | Observation (INO) | payer OTHER | END 2017-06-10 10:00 | disposition home or self-care (01) | LOC: 3 SO LND 09:07 | DX: O36.8130 Decreased fetal movements, third trimester, not applicable or unspecified (principal); Z3A.33 33 weeks gestation of pregnancy | CPT/HCPCS: G0378; G0379 ==

== ENCOUNTER 2017-06-18 09:28 | Observation (INO) | payer OTHER ==
[2017-06-21] MEDS ORDERED: PNV1TABL25 PO (08:54)
== END 2017-06-18 10:20 | disposition home or self-care (01) ==
LOC: 3 SO LND 09:28
DX: O36.8130 Decreased fetal movements, third trimester, not applicable or unspecified (principal); Z3A.34 34 weeks gestation of pregnancy
CPT/HCPCS: G0378; G0379

== ENCOUNTER 2017-06-20 17:12 | Observation (INO) | payer OTHER ==
[2017-06-20] MEDS ORDERED: BETAMET ACET&NA PHOS 30 MG/5 ML VIAL. IM (18:00)
[2017-06-20] MEDS: IV RINGERS,LACTATED 1000ML 1,000 ML IV ×3 (18:12→23:26)
[2017-06-20 18:32] LABS: NEG OBC AMNIO NEG; POS OBC AMNIO POS
[2017-06-20 18:33] LABS: BILIRUBIN,URINE NEGATIVE (NEG); GLUCOSE,URINE NEGATIVE (NEG); NITRITE,URINE NEGATIVE (NEG); PH,URINE 7.5; PROTEIN,URINE 30 mg/dL (NEG-TRACE)
[2017-06-20 18:35] LABS: BARBITURATES NEG (NEG); BENZODIAZEPINES NEG (NEG); CANNABINOIDS POS (NEG); COCAINE NEG (NEG); METHADONE NEG (NEG); OPIATES NEG (NEG); PHENCYCLIDINE NEG (NEG)
[2017-06-20 18:37] LABS: ETHANOL, URINE NEG (NEG)
[2017-06-20 18:48] LABS: ADD MAN DIFF? NO
[2017-06-20 18:52] LABS: BASO % 0 % (0-3); EOS % 0 % (0-3); HEMATOCRIT 35.2 % (36.0-47.0); HEMOGLOBIN 11.7 g/dL (12.0-15.5); LYMPH # 1.2 x10^3/uL (1.0-4.8); LYMPH % 11 % (24-48); MEAN CORPUSCULAR HEMOGLOBIN 29 pg (25-35); MEAN CORPUSCULAR HGB CONC 33 g/dL (31-37); MEAN CORPUSCULAR VOLUME 87 fL (79-100); MONO % 10 % (0-9); NEUT % 79 % (31-73); PLATELET COUNT 295 x10^3/uL (140-400); RED BLOOD COUNT 4.02 x10^6/uL (3.50-5.40); RED CELL DISTRIBUTION WIDTH 13.6 % (11.5-14.5); WHITE BLOOD COUNT 10.8 x10^3/uL (4.0-11.0)
[2017-06-20 18:57] LABS: BACTERIA,URINE 0 /HPF (0-FEW); RBC,URINE 0 /HPF (0-2); SQUAMOUS EPITHELIAL CELL,UR OCC /LPF; WBC,URINE OCC /HPF (0-4)
[2017-06-20 19:02] LABS: ANION GAP 14 (6-14); BLOOD UREA NITROGEN 6 mg/dL (7-20); BUN/CREATININE RATIO 9 (6-20); CALCIUM 8.4 mg/dL (8.5-10.1); CARBON DIOXIDE 21 mmol/L (21-32); CHLORIDE 104 mmol/L (98-107); CREATININE 0.7 mg/dL (0.6-1.0); GFR 123.4; GLUCOSE 69 mg/dL (70-99); POTASSIUM 3.8 mmol/L (3.5-5.1); SODIUM 139 mmol/L (136-145)
[2017-06-20 19:08] LABS: ALBUMIN 2.7 g/dL (3.4-5.0); ALBUMIN/GLOBULIN RATIO 0.8 (1.0-1.7); ALK PHOS 205 U/L (46-116); ALT (SGPT) 17 U/L (14-59); AST (SGOT) 21 U/L (15-37); TOTAL BILIRUBIN 0.3 mg/dL (0.2-1.0); TOTAL PROTEIN 6.2 g/dL (6.4-8.2)
[2017-06-20 19:12] LABS: LACTIC ACID 2.1 mmol/L (0.4-2.0)
[2017-06-20] MEDS ORDERED: MAG HYDROX/ALUMINUM HYD/SIMETH 30 ML ORAL.SUSP PO (19:15)
[2017-06-20] MEDS ORDERED: ONDANSETRON PF 4 MG/2 ML VIAL. IV (19:15)
[2017-06-20 19:26] LABS: PROCALCITONIN < 0.10 ng/mL (0.00-0.10)
[2017-06-20 20:19] LABS: OBC FLU VALID
[2017-06-20] MEDS: ACETAMINOPHEN 325 MG TABLET. PO (20:30)
[2017-06-20] MEDS: ZOLPIDEM 5 MG TABLET. PO (23:25)
[2017-06-21] MEDS: IV RINGERS,LACTATED 1000ML 1,000 ML IV (07:37)
[2017-06-21] MEDS: ACETAMINOPHEN 325 MG TABLET. PO (08:52)
[2017-06-21] MEDS: PRENATAL MULTIVITAMIN TABLET. PO (08:52)
== END 2017-06-21 11:57 | disposition home or self-care (01) ==
LOC: 3 SO LND 17:12
DX: O76 Abnormality in fetal heart rate and rhythm complicating labor and delivery (principal); Z3A.34 34 weeks gestation of pregnancy
CPT/HCPCS: 36415; 76815; 80053; 80307; 81001; 83605; 84112; 84145; 85025; 86850; 86900; 86901; 87040; 87804; 87804-59; 96360; 96361; G0378; G0379; J7120

== ENCOUNTER 2017-06-25 07:45 | Observation (INO) | payer OTHER | END 2017-06-25 09:22 | disposition home or self-care (01) | LOC: US 07:45 → 3 SO LND 09:21 | DX: Z34.93 Encounter for supervision of normal pregnancy, unspecified, third trimester (principal); Z3A.35 35 weeks gestation of pregnancy | CPT/HCPCS: 59025; 76819; G0378; G0379 ==

== ENCOUNTER 2017-07-01 09:27 | Observation (INO) | payer OTHER | END 2017-07-01 10:10 | disposition home or self-care (01) | LOC: 3 SO LND 09:27 | DX: O36.8130 Decreased fetal movements, third trimester, not applicable or unspecified (principal); Z3A.36 36 weeks gestation of pregnancy | CPT/HCPCS: G0378; G0379 ==

== ENCOUNTER 2017-07-08 09:36 | Observation (INO) | payer OTHER | END 2017-07-08 14:31 | disposition home or self-care (01) | LOC: 3 SO LND 09:36 | DX: Z34.93 Encounter for supervision of normal pregnancy, unspecified, third trimester (principal); Z3A.37 37 weeks gestation of pregnancy | CPT/HCPCS: 59025; G0378; G0379 ==

== ENCOUNTER 2017-07-15 08:48 | Observation (INO) | payer OTHER | END 2017-07-15 09:45 | disposition home or self-care (01) | LOC: 3 SO LND 08:48 | DX: O36.8130 Decreased fetal movements, third trimester, not applicable or unspecified (principal); Z3A.38 38 weeks gestation of pregnancy | CPT/HCPCS: 59025; G0378; G0379 ==

== ENCOUNTER 2017-07-22 09:47 | Inpatient (IN) | payer OTHER ==
[2017-07-22 11:10] LABS: HEMATOCRIT 36.5 % (36.0-47.0); MEAN CORPUSCULAR HEMOGLOBIN 28 pg (25-35); MEAN CORPUSCULAR HGB CONC 33 g/dL (31-37); MEAN CORPUSCULAR VOLUME 86 fL (79-100); PLATELET COUNT 286 x10^3/uL (140-400); RED BLOOD COUNT 4.23 x10^6/uL (3.50-5.40); RED CELL DISTRIBUTION WIDTH 14.1 % (11.5-14.5); WHITE BLOOD COUNT 11.1 x10^3/uL (4.0-11.0)
[2017-07-22 11:31] LABS: BILIRUBIN,URINE NEGATIVE (NEG); CLARITY,URINE CLEAR; COLOR,URINE YELLOW; GLUCOSE,URINE NEGATIVE (NEG); NITRITE,URINE NEGATIVE (NEG); PROTEIN,URINE NEGATIVE (NEG-TRACE); UROBILINOGEN,URINE 0.2 mg/dL (0.2 mg/dL)
[2017-07-22 11:36] LABS: BARBITURATES NEG (NEG); BENZODIAZEPINES NEG (NEG); CANNABINOIDS NEG (NEG); COCAINE NEG (NEG); METHADONE NEG (NEG); OPIATES NEG (NEG); PHENCYCLIDINE NEG (NEG)
[2017-07-22 11:39] LABS: AMPHETAMINE/METHAMPHETAMINE NEG (NEG); ETHANOL, URINE NEG (NEG)
[2017-07-22 11:47] LABS: BACTERIA,URINE 0 /HPF (0-FEW); RBC,URINE 0 /HPF (0-2); SQUAMOUS EPITHELIAL CELL,UR MANY /LPF; WBC,URINE 0 /HPF (0-4)
[2017-07-22] MEDS ORDERED: KETOROLAC 30 MG/ML INJ. IV (12:00)
[2017-07-22] MEDS ORDERED: OXYTOCIN 10 UNIT/ML VIAL. ×4 (12:19→13:27)
[2017-07-22] MEDS: IV RINGERS,LACTATED 1000ML 1,000 ML IV (12:19)
[2017-07-22] MEDS ORDERED: FAMOTIDINE 20 MG/2 ML VIAL (12:19)
[2017-07-22] MEDS: CITRIC ACID/SODIUM CITRATE 30 ML SOLUTION. PO (12:19)
[2017-07-22] MEDS ORDERED: ONDANSETRON PF 4 MG/2 ML VIAL. (12:19)
[2017-07-22] MEDS: CLINDAMYCIN 900MG PREMIX 50 ML IV (12:19)
[2017-07-22] MEDS ORDERED: MORPHINE PF 5 MG/10 ML VIAL. (12:22)
[2017-07-22] MEDS ORDERED: fentaNYL PF VIAL 100 MCG/2 ML VIAL (12:23)
[2017-07-22] MEDS ORDERED: PHENYLEPHRINE in 0.9% NACL PF 1 MG/10 ML SYRINGE. IV (12:56)
[2017-07-22] MEDS ORDERED: DEXAMETHASONE SOD PHOS 20 MG/5 ML VIAL. (13:04)
[2017-07-22] MEDS ORDERED: ONDANSETRON PF 4 MG/2 ML VIAL. IV (15:45)
[2017-07-22] MEDS ORDERED: MAG HYDROX/ALUMINUM HYD/SIMETH 30 ML ORAL.SUSP PO (15:45)
[2017-07-22] MEDS ORDERED: OXYTOCIN 30 UNIT/500 ML PREMIX 500 ML IV (15:45)
[2017-07-22] MEDS ORDERED: 0.9 % SODIUM CHLORIDE 10 ML DISP.SYRIN. IV (15:45)
[2017-07-22] MEDS: diphenhydrAMINE 50 MG/ML VIAL IVP (15:54)
[2017-07-22] MEDS: FERROUS SULFATE 325 MG TABLET. PO (17:00)
[2017-07-22] MEDS: oxyCODONE/APAP 5/325 1 TAB TABLET PO (18:54)
[2017-07-22] MEDS: IBUPROFEN 800 MG TABLET. PO (22:57)
[2017-07-22] MEDS: diphenhydrAMINE ORAL ELIXIR 12.5 MG/5 ML ML PO (22:57)
[2017-07-23 00:12] LABS: RUBELLA IGG ANTIBODY 8.85 index (Immune >0.99)
[2017-07-23] MEDS: SIMETHICONE 80 MG TAB.CHEW PO (04:07)
[2017-07-23] MEDS: oxyCODONE/APAP 5/325 1 TAB TABLET PO ×4 (04:14→19:49)
[2017-07-23] MEDS: DOCUSATE SODIUM 100 MG CAPSULE. PO ×2 (04:16→19:48)
[2017-07-23 06:25] LABS: BASO % 0 % (0-3); EOS % 0 % (0-3); HEMATOCRIT 31.9 % (36.0-47.0); HEMOGLOBIN 10.5 g/dL (12.0-15.5); LYMPH # 2.4 x10^3/uL (1.0-4.8); LYMPH % 14 % (24-48); MEAN CORPUSCULAR HEMOGLOBIN 29 pg (25-35); MEAN CORPUSCULAR HGB CONC 33 g/dL (31-37); MEAN CORPUSCULAR VOLUME 87 fL (79-100); MONO # 1.2 x10^3/uL (0.0-1.1); MONO % 7 % (0-9); NEUT # 13.3 x10^3uL (1.8-7.7); NEUT % 79 % (31-73); PLATELET COUNT 273 x10^3/uL (140-400); RED BLOOD COUNT 3.66 x10^6/uL (3.50-5.40); WHITE BLOOD COUNT 16.9 x10^3/uL (4.0-11.0)
[2017-07-23 06:53] LABS: ADD MAN DIFF? YES
[2017-07-23 08:21] LABS: RPR Non Reactive (Non Reactive)
[2017-07-23 09:33] LABS: % BANDS 2 % (0-9); % LYMPHS 20 % (24-48); % MONOS 5 % (0-10); % SEGS 73 % (35-66)
[2017-07-23 09:34] LABS: PLT ESTIMATE ADEQUATE (ADEQUATE)
[2017-07-23] MEDS: IBUPROFEN 800 MG TABLET. PO ×2 (12:26→22:57)
[2017-07-23 17:15] LABS: HEP B SURFACE AG Negative (Negative)
[2017-07-23] MEDS: diphenhydrAMINE ORAL ELIXIR 12.5 MG/5 ML ML PO (21:52)
[2017-07-24] MEDS: DOCUSATE SODIUM 100 MG CAPSULE. PO ×2 (08:22→22:04)
[2017-07-24] MEDS: oxyCODONE/APAP 5/325 1 TAB TABLET PO ×4 (08:23→22:05)
[2017-07-24] MEDS: IBUPROFEN 800 MG TABLET. PO ×2 (09:21→17:56)
[2017-07-24] MEDS ORDERED: INFLUENZA VAX SCREEN BY RX. MC (22:45)
[2017-07-25] MEDS: IBUPROFEN 800 MG TABLET. PO ×2 (02:51→11:57)
[2017-07-25] MEDS: oxyCODONE/APAP 5/325 1 TAB TABLET PO (02:52)
[2017-07-25] MEDS ORDERED: HYDROcodone/APAP 5/325MG 1 TAB TABLET PO (09:30)
[2017-07-25] MEDS: DOCUSATE SODIUM 100 MG CAPSULE. PO (10:43)
[2017-07-25] MEDS: HYDROcodone/APAP 5/325MG 1 TAB TABLET PO (10:50)
[2017-07-25] MEDS: DIPHTH,PERTUSS(ACELL),TET TOX 0.5 ML DISP.SYRIN. VAX IM (11:00)
[2017-07-25] MEDS: FLU VACC QS2017-18 (36MOS+)/PF 0.5 ML SYRINGE. VAX IM (11:06)
[2017-07-25] MEDS: BISACODYL 10 MG SUPP.RECT. PR (11:08)
== END 2017-07-25 15:10 | disposition home or self-care (01) | DRG 766 ==
LOC: 3 SO LND 09:47 → 3 NORTH 17:22
PROC: 10D00Z1 Extraction of Products of Conception, Low, Open Approach (ICD-10-PCS; principal; 2017-07-22)
DX: O34.211 Maternal care for low transverse scar from previous cesarean delivery (principal); J45.909 Unspecified asthma, uncomplicated; Z37.0 Single live birth; O99.52 Diseases of the respiratory system complicating childbirth; O36.8130 Decreased fetal movements, third trimester, not applicable or unspecified; O99.824 Streptococcus B carrier state complicating childbirth; Z3A.39 39 weeks gestation of pregnancy; Z86.32 Personal history of gestational diabetes
CPT/HCPCS: 36415; 80307; 81001; 85007; 85025; 85027; 86593; 86762; 86850; 86900; 86901; 87340; 90686; 90715; J1100; J1200; J2270; J2370; J2405; J2590; J3010; J3490; J7120; S0028

== ENCOUNTER 2017-12-06 17:10 | Emergency (ER) | payer OTHER ==
[2017-12-06] MEDS: ALBUTEROL SULFATE 2.5 MG/3 ML NEBU. NEB (17:40)
[2017-12-06 18:24] LABS: BILIRUBIN,URINE SMALL (NEG); CLARITY,URINE CLEAR; GLUCOSE,URINE NEGATIVE (NEG); NITRITE,URINE NEGATIVE (NEG); PH,URINE 7.5; PROTEIN,URINE NEGATIVE (NEG-TRACE)
[2017-12-06 18:29] LABS: COLOR,URINE DK YELLOW
[2017-12-06 18:31] LABS: BACTERIA,URINE FEW /HPF (0-FEW); RBC,URINE RARE /HPF (0-2); SQUAMOUS EPITHELIAL CELL,UR FEW /LPF; WBC,URINE 0 /HPF (0-4)
[2017-12-06] MEDS: predniSONE 20 MG TABLET PO (18:47)
== END 2017-12-06 19:32 | disposition home or self-care (01) ==
LOC: ER 17:10
DX: M54.6 Pain in thoracic spine (principal); J45.901 Unspecified asthma with (acute) exacerbation; R07.89 Other chest pain; Z88.0 Allergy status to penicillin
CPT/HCPCS: 71046; 81001; 94640; 99285-25; J7512; J7613